=== PATIENT | female | born 1960 | race Two or more races ===

== ENCOUNTER 2024-02-01 19:40 | Emergency (ER) | payer OTHER ==
[~2024-02-01] VITALS: Ht 160 cm; Wt 63.5 kg
[2024-02-01] MEDS ORDERED: PIPERACI/TAZO 3.375GM/D5W 50ML PB IV ONE (21:15)
[2024-02-01] MEDS ORDERED: ACETAMINOPHEN ES 500 MG TABLET ONE (21:15)
[2024-02-01] MEDS ORDERED: KETOROLAC TROMETHAMINE 15 MG/ML VIAL ONE (21:15)
[2024-02-01 21:22] LABS: BASOPHILS % (AUTO) 0.3 % (0.0-2.0); HEMATOCRIT 44 % (33-45); LYMPHOCYTES # (AUTO) 1.7 K/uL (0.8-4.8); LYMPHOCYTES % (AUTO) 13.7 % (20.0-44.0); MEAN CORPUSCULAR HEMOGLOBIN 30 PG (26.0-33.0); MEAN CORPUSCULAR HGB CONC 34 g/dl (31.0-36.0); MEAN CORPUSCULAR VOLUME 89 fL (82-100); MONOCYTES # (AUTO) 1.1 K/uL (0.1-1.30); MONOCYTES % (AUTO) 9.3 % (2.0-12.0); NEUTROPHILS # (AUTO) 9.3 K/uL (1.8-8.9); NEUTROPHILS % (AUTO) 76.7 % (43.0-81.0); PLATELET COUNT (AUTO) 177 K/uL (150-450); RED BLOOD CELL COUNT(AUTO) 5.01 MIL/uL (4.0-5.2); RED CELL DISTRIBUTION WIDTH 13.1 % (11.5-15.0); WHITE BLOOD COUNT (AUTO) 12.1 K/uL (4.3-11.0)
[2024-02-01] MEDS: ACETAMINOPHEN ES 500 MG TABLET PO ONE (21:30)
[2024-02-01] MEDS: PIPERACILLIN /TAZOBACTAM 3.375 G in IV D5W 50 ML IV ONE (21:30)
[2024-02-01] MEDS: KETOROLAC TROMETHAMINE 15 MG/ML VIAL IV ONE (21:30)
[2024-02-01] MEDS: IV NS 0.9% 1,000 ML BAG IV ONE (21:30)
[2024-02-01 21:34] LABS: CALCIUM, SERUM 9.7 mg/dL (8.5-10.1); CREATININE 0.6 mg/dL (0.6-1.3); POTASSIUM 3.9 mmol/L (3.5-5.1)
[2024-02-01] MEDS ORDERED: IV NS 0.9% 250 ML IV ONE (21:51)
[2024-02-01] MEDS ORDERED: IOHEXOL-300 100 ML VIAL IV ONE (21:51)
[2024-02-01] MEDS ORDERED: AMOX-430 PO (22:16)
[2024-02-01 23:33] VITALS: BP 154/88; TEMP 98.7; O2SAT 99
== END 2024-02-01 23:33 | disposition home or self-care (01) ==
LOC: ER 19:49
DX: L04.0 Acute lymphadenitis of face, head and neck (principal)
CPT/HCPCS: 99285; 96365; 70491; 96375; 85025; 80048; 36415; J2543 ×2; J7060; J7050; Q9967; J1885